=== PATIENT | male | born 1955 | race Caucasian/White ===

== ENCOUNTER 2016-08-18 04:41 | Emergency (ER) | payer OTHER ==
--- NOTE | 2016-08-18 07:08 | ED ORDER SUMMARY ---
..... 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 per protocol) (7:05 JBoardley R.N.) IV FLUIDS: ORDER SHEET NOTES: [Electronically signed by Jhony Correa R.N. (07:08/18/2016)] [Electronically signed by Waldemar Garcia MD (09:29 08/18/2016)] [Electronically locked/signed by Jhony Correa R.N. (07:08/18/2016)]
--- NOTE | 2016-08-18 07:08 | ED CLINICAL REPORT ---
Clinical Report - Physicians/Mid Levels [facility] [address] [place] [address] 08/18/2016 4:43 Patient: ZENA NIXON Time Seen: 04:52. Arrived- By private vehicle. Historian- patient. HISTORY OF PRESENT ILLNESS Location of injuries- upper, mid and lower back, right hand and left shoulder and left hand. Chief Complaint: FALL. The injury occurred last night. Fell while walking and landed on a concrete surface (while stepping off of a curb). Occurred on a street. The patient complains of severe pain. No blow to the head or loss of consciousness. The patient complains of neck pain. REVIEW OF SYSTEMS No numbness, dizziness, weakness, headache or chills. No fever, sweats, calf pain, chest pain or cough. No difficulty breathing, pedal edema, palpitations, abdominal pain or constipation. No diarrhea, nausea, vomiting or urinary problems. All systems otherwise negative, except as recorded above. PAST HISTORY Tetanus immunization status is unknown. Problems: Chronic pain. COPD - Chronic Obstructive Pulmonary Disease. Anxiety Reaction. Hepatitis. Degenative Disk Disease. Additional Surgeries: Clavical "Shaved". Facial reconstruction. Left Arm Muscle Surgery. Medications: Naloxone HCl Injection. Ledipasvir-Sofosbuvir. Ipratropium-Albuterol Inhalation. Methadone HCl Oral. ClonazePAM Oral. Allergies: No Known Drug Allergy. SOCIAL HISTORY Never smoker. History of occasional drug use: marijuana. Is a recovering addict. FAMILY HISTORY Denies family medical history. ADDITIONAL NOTES The nursing notes have been reviewed. PHYSICAL EXAM Vital Signs: 08/18/2016 04:51 BP: 151/101. HR: 104. RR: 16. O2 saturation: 96%. Temp: 98 F. Pain level now: 8/10. Have been reviewed. Appearance: Alert. Head: No swelling of head. Eyes: Pupils equal, round and reactive to light. EOM intact. ENT: No dental injury. Pharynx normal. Neck: No vertebral tenderness. CVS: Heart sounds normal. Respiratory: Breath sounds normal. Abdomen: No visible injury. Soft and nontender. Bowel sounds normal. No organomegaly. No mass. Back: Moderately limited ROM in the back- in the thoracic spine; in the lumbar spine. No vertebral point tenderness. Skin: Skin warm and dry. Normal skin color. Normal skin turgor. Extremities: Normal inspection. Right hand: mild tenderness and multiple small abrasions. Left hand: multiple small abrasions. Pelvis stable. LABS, X-RAYS, AND EKG C-Spine X-rays: (IMPRESSION: 1. Intact cervical spine with mild to moderate degenerative disc and endplate changes.). The X-rays were interpreted by the radiologist and contemporaneously by me. T-Spine X-rays: (IMPRESSION: 1. Intact thoracic spine. 2. Mild degenerative changes.). The X-rays were interpreted by the radiologist and contemporaneously by me. LS-Spine X-rays: (IMPRESSION: 1. Minor L1 superior endplate compression, chronicity uncertain. 2. Moderately severe degenerative disc and endplate change to the lumbar spine.). The X-rays were interpreted by the radiologist and contemporaneously by me. PROGRESS AND PROCEDURES Patient/family counseled. Old medical records ordered. Old records unavailable. Disposition: Discharged. Condition: stable. CLINICAL IMPRESSION Acute and chronic neck pain associated with cervical DJD. Multiple superficial abrasions to the right hand and left hand. Back pain associated with muscle strain; degenerative joint disease; degenerative disc disease. Fall. INSTRUCTIONS Apply ice for 20 minutes four times a day until better. Don't apply ice directly to skin and don't use while asleep. Protect wound and keep wound area clean. You may wash wounds briefly, then dry. Apply neosporin twice daily. No driving or operating machinery. Warnings: COMPLICATIONS: Complications from this condition include: possible infection. Future problems may include infection, scarring and pain. INFECTION: Watch for signs of infection (increasing heat and redness, pus-like drainage, swelling, or increased pain). Return or see your doctor if these signs occur. TETANUS: You were given a tetanus shot during your visit. Make a note for future reference. GENERAL WARNINGS: Return or contact your physician immediately if your condition worsens or changes unexpectedly, if not improving as expected, or if other problems arise. Your Current Medications: CONTINUE TAKING THE FOLLOWING MEDICATIONS: ClonazePAM Oral. Ipratropium-Albuterol Inhalation. Ledipasvir-Sofosbuvir*. Methadone HCl Oral. Naloxone HCl Injection. Follow-up: Follow up with your doctor in three days if not better. Understanding of the discharge instructions verbalized by patient. (Electronically signed by Waldemar Garcia MD 08/18/2016 9:29)
--- NOTE | 2016-08-18 07:08 | ED NURSING NOTES ---
Clinical Report - Nurses [facility] [address] [place] [address] 08/18/2016 4:43 Patient: ZENA NIXON TRIAGE Triage time 04:51. Acuity: LEVEL 4. Chief Complaint: FALL. Alert. No acute distress. CHRIS COMA SCORE: Chris Coma Scale: 15- eyes open spontaneously (4); best verbal response- oriented x 4 (5); best motor response- obeys commands (6). --04:59 Lee De La Torre R.N. 04:51 08/18/16. BP: 151/101 taken while sitting. HR: 104. RR: 16 (regular and unlabored). O2 saturation: 96% on room air. Temp: 98 F (oral). Pain level now: 11/25. --04:59 Lee De La Torre R.N. Weight: 81.6 kg stated. Height/Length: 68 inches. BMI: 27.4. --04:50 Lee De La Torre R.N. Medications ClonazePAM Oral. --04:54 Lee De La Torre R.N. Methadone HCl Oral. --04:54 Lee De La Torre R.N. Ipratropium-Albuterol Inhalation. --04:55 Lee De La Torre R.N. Ledipasvir-Sofosbuvir. --04:55 Lee De La Torre R.N. Naloxone HCl Injection. --04:56 Lee De La Torre R.N. Allergies No Known Drug Allergy. --04:53 Lee De La Torre R.N. History Arrived by private vehicle. Historian: patient. Unaccompanied. Location of injuries: right hand and left hand. This occurred just prior to arrival. ( pt states that he "fell off a curb" and states having increased back pain and "spasms" in his back and left shoulder. Denies LOC.). No loss of consciousness. No alteration in mental status. SOCIAL HX: Never smoker. History of occasional drug use: marijuana. Is a recovering addict. No alcohol use. ABUSE ASSESSMENT: No report of abuse. SELF HARM ASSESSMENT: A self harm assessment was performed. The patient answered "no" to the question "Do you have thoughts of harming or killing yourself?" and "Are you here because you tried to hurt yourself?". NUTRITIONAL RISK ASSESSMENT: The nutritional risk assessment revealed no deficiencies. FUNCTIONAL ASSESSMENT: Functional assessment: no impairments noted. LEARNING NEEDS ASSESSMENT: The learning needs assessment revealed no barriers. FALL RISK ASSESSMENT: Fall risk assessment completed. Risk factors identified include patient history of fall. SKIN INTEGRITY ASSESSMENT: Skin integrity risk assessment completed. No skin integrity risk identified. --04:59 Lee De La Torre R.N. PROBLEMS: COPD - Chronic Obstructive Pulmonary Disease. Anxiety Reaction. Hepatitis. Degenative Disk Disease. --04:57 Lee De La Torre R.N. Chronic pain. --05:07 Lee De La Torre R.N. The following entry was modified by Lee De La Torre R.N., 05:07 Reason - charted in error <<STRICKEN ENTRY-- Substance Abuse. --04:56 Lee De La Torre R.N. --END STRIKE>>. ADDITIONAL SURGERIES: Clavical "Shaved". Facial reconstruction. Left Arm Muscle Surgery. --04:58 Lee De La Torre R.N. Interventions ID band on patient. To room. --04:59 Lee De La Torre R.N. PHYSICAL ASSESSMENT Ambulatory to room. GENERAL / NEURO / PSYCH: Alert. Oriented X 4. Appears in no acute distress. RESPIRATORY: Respirations not labored. ( slight inspiratory wheezing in bilateral lower lobes). CVS: Capillary refill less than 2 seconds. SKIN: Skin is warm and dry. ( superficial scratches to hands bilaterally). --05:01 Lee De La Torre R.N. NURSING PROGRESS NOTES Patient gowned. Reassurance given. Two patient identifiers checked. Call light placed in reach. Side rails up x 1. Bed placed in lowest position. Brakes of bed on. Patient ready for evaluation- chart flagged. Patient waiting for evaluation. --05:02 Lee De La Torre R.N. ( Patient returned from radiology.). --05:54 Lee De La Torre R.N. <<STRICKEN ENTRY-- 06:14 08/18/2016 TDAP IM 0.5 mL given. (Lot#: [id number], Manufacturing Sr Engineer: sanofi pasteur). Given in the left deltoid. Allergies verified and confirmed 5 rights. Vaccine information statement provided to the patient. --06:14 Lee De La Torre R.N. --END STRIKE>> Correction. --06:15 Lee De La Torre R.N. 06:14 08/18/2016 TDAP IM 0.5 mL given. (Lot#: [id number], expiration date: 01/23/2018, Manufacturing Sr Engineer: sanofi pasteur). Given in the left deltoid. Allergies verified and confirmed 5 rights. Vaccine information statement provided to the patient. --06:15 Lee De La Torre R.N. 06:16 08/18/2016 Toradol IM 60 mg (NOW) was refused by patient because pain is gone. Lee De La Torre --06:17 Lee De La Torre R.N. ( Patient states that "the pain is really not that bad. Could I not have the shot?" Patient declines toradol shot, and accepts TDAP shot.). --06:19 Lee De La Torre R.N. <<STRICKEN ENTRY-- ( helped patient to the bedside commode). --06:34 Lee De La Torre R.N. --END STRIKE>> Charted On Wrong Patient --06:37 Lee De La Torre R.N. <<STRICKEN ENTRY-- 06:34 08/18/16. BP: 135/63. HR: 84. RR: 21. O2 saturation: 94% on nasal cannula at 2 liters/minute. Pain level now: 10/25. --06:34 Lee De La Torre R.N. --END STRIKE>> Charted on wrong patient. --06:37 Lee De La Torre R.N. ( patient resting on bed). --06:38 Lee De La Torre R.N. ( Report given to Jhony Lemons RN). --07:01 Lee De La Torre R.N. 07:00 08/18/2016 Zofran ODT (Ondansetron) PO 4 mg given. Allergies verified and confirmed 5 rights. --07:05 Jhony Correa R.N. 07:06 08/18/16. ( Pt c/o nausea on DC, gave pt zofran ODT at 0700, on DC pt states nausea is better.). --07:06 Jhony Correa R.N. DISPOSITION / DISCHARGE 07:08/18/16. Condition at departure: improved. The goals identified in the patient's plan of care were met. No learning barriers present. Discharge instructions provided and reviewed with the patient. Reviewed warnings. Reviewed medication(s). Treatments reviewed. Patient verbalized understanding. Written instructions provided in Greenlandic. The patient was discharged by the physician. He was discharged home. He left the Emergency Department ambulatory and via private vehicle. Patient driving. FALL RISK ASSESSMENT: Fall risk assessment completed. No fall risk identified. --07:06 Jhony Correa R.N. 07:08/18/16. BP: 165/88. HR: 72. RR: 14. O2 saturation: 98% on room air. Temp: 98.2 F (oral). --07:06 Jhony Correa R.N. 07:07 08/18/16. --07:07 Jhony Correa R.N. 07:08/18/16. Pain level now: 04/27. --07:07 Jhony Correa R.N. 07:08/18/16. ( Gave pt abx on DC as well as bandaids for wound care. Pt aware how to care for wounds on DC). --07:07 Jhony Correa R.N. <<STRICKEN ENTRY-- 07:07 08/18/16. Departure time: 07:07. --07:07 Jhony Correa R.N. --END STRIKE>> Correction --07:11 Jhony Correa R.N. 07:10 08/18/16. Departure time: 07:10. --07:10 Jhony Correa R.N. Locked/Released at 08/18/2016 7:11 by Jhony Correa R.N.
--- NOTE | 2016-08-18 07:08 | ED ORDER SUMMARY ---
..... 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 per protocol) (7:05 JBoardley R.N.) IV FLUIDS: ORDER SHEET NOTES: [Electronically signed by Jhony Correa R.N. (07:08/18/2016)] [Electronically signed by Waldemar Garcia MD (09:29 08/18/2016)] [Electronically locked/signed by Jhony Correa R.N. (07:08/18/2016)]
--- NOTE | 2016-08-18 07:42 | DIAGNOSTIC IMAGING REPORT ---
PROCEDURE: XR CERVICAL SPINE 2 OR 3 VIEW INDICATION: NECK PAIN TECHNIQUE: Four views of the cervical spine were obtained. COMPARISON: None. FINDINGS: The cervical vertebral bodies are normal in height without acute fracture. Trace retrolisthesis C2 on three, C3-4, and trace anterolisthesis C4 and C5. Mild posterior endplate spurring and uncovertebral joint hypertrophy. Moderate disc height loss C2-3, C3-4, C5-6, C6-7 and mild disc height loss C4-5. There is no prevertebral soft-tissue swelling or suspicious calcification. The airway is patent. The soft tissues of the neck appear normal. IMPRESSION: 1. Intact cervical spine with mild to moderate degenerative disc and endplate changes.
--- NOTE | 2016-08-18 07:45 | DIAGNOSTIC IMAGING REPORT ---
PROCEDURE: XR THORACIC SPINE 3 VIEWS INDICATION: MID BACK PAIN TECHNIQUE: Three views of the thoracic spine COMPARISON: None. FINDINGS: 12 thoracic vertebral bodies are normal in height without fracture. Minor smooth rightward curvature. No acute AP subluxation. Mild anterior endplate spurring in the upper to mid thoracic spine. Mild decreased disc height loss T6-7. Sclerotic degenerative endplate changes. Paraspinal soft tissue stripe is normal. The visible soft tissues and ribs are normal. IMPRESSION: 1. Intact thoracic spine. 2. Mild degenerative changes.
--- NOTE | 2016-08-18 07:51 | DIAGNOSTIC IMAGING REPORT ---
PROCEDURE: XR LUMBAR SPINE 2 OR 3 VIEWS INDICATION: LOWER BACK PAIN TECHNIQUE: Three views of the lumbar spine COMPARISON: None. FINDINGS: Five lumbar-type vertebral bodies. Minor superior endplate compression of L1. No other vertebral body height loss. Moderate endplate sclerosis and spurring, particularly left lateral at the L1-2 level. Moderately severe multilevel disc height loss throughout the lumbar spine mild S-shaped scoliosis with rightward apex at L1-2 and leftward apex at L4. No acute AP subluxation. The rest of the visible osseous pelvis is normal. Overlying soft tissues are unremarkable. IMPRESSION: 1. Minor L1 superior endplate compression, chronicity uncertain. 2. Moderately severe degenerative disc and endplate change to the lumbar spine.
--- NOTE | 2016-08-18 09:29 | ED MAR SUMMARY ---
..... Medication Administration Record [facility] [address] [place] [address] Patient: ZENA NIXON Visit ID: [id number] 61y, M Weight: 81.6 kg Height/Length: 68 in BMI: 27.4 ALLERGIES: No Known Drug Allergy Given 06:14 08/18/2016 Lee De La Torre R.N. Medication Administered: TDAP [IM], Dose: 0.5 mL IM. Medication Ordered: Tdap IM 0.5 mL (NOW, per protocol). Given 07:00 08/18/2016 Jhony Correa RKiana Medication Administered: ZOFRAN ODT [PO] (ONDANSETRON), Dose: 4 mg PO. Medication Ordered: Zofran ODT PO 4 mg (NOW).
--- NOTE | 2016-08-18 09:29 | ED MAR SUMMARY ---
..... Medication Administration Record [facility] [address] [place] [address] Patient: ZENA NIXON Visit ID: [id number] 61y, M Weight: 81.6 kg Height/Length: 68 in BMI: 27.4 ALLERGIES: No Known Drug Allergy Given 06:14 08/18/2016 Lee De La Torre R.N. Medication Administered: TDAP [IM], Dose: 0.5 mL IM. Medication Ordered: Tdap IM 0.5 mL (NOW, per protocol). Given 07:00 08/18/2016 Jhony Correa RKiana Medication Administered: ZOFRAN ODT [PO] (ONDANSETRON), Dose: 4 mg PO. Medication Ordered: Zofran ODT PO 4 mg (NOW).
--- NOTE | 2016-08-18 09:29 | ED DISCHARGE INSTRUCTIONS ---
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 Multiple superficial abrasions to the right hand and left hand. Back pain associated with muscle strain; degenerative joint disease; degenerative disc disease. Fall. INSTRUCTIONS Apply ice for 20 minutes four times a day until better. Don't apply ice directly to skin and don't use while asleep. Protect wound and keep wound area clean. You may wash wounds briefly, then dry. Apply neosporin twice daily. No driving or operating machinery. Warnings: COMPLICATIONS: Complications from this condition include: possible infection. Future problems may include infection, scarring and pain. INFECTION: Watch for signs of infection (increasing heat and redness, pus-like drainage, swelling, or increased pain). Return or see your doctor if these signs occur. TETANUS: You were given a tetanus shot during your visit. Make a note for future reference. GENERAL WARNINGS: Return or contact your physician immediately if your condition worsens or changes unexpectedly, if not improving as expected, or if other problems arise. Your Current Medications: CONTINUE TAKING THE FOLLOWING MEDICATIONS: ClonazePAM Oral. Ipratropium-Albuterol Inhalation. Ledipasvir-Sofosbuvir*. Methadone HCl Oral. Naloxone HCl Injection. Follow-up: Follow up with your doctor in three days if not better. Understanding of the discharge instructions verbalized by patient. ADDITIONAL INFORMATION Mechanical Fall You have had a fall today. It appears that the cause is mechanical. That means that you slipped, tripped or lost your balance. If your fall had been due to fainting or a seizure, further tests would be required. Home Care: Rest today and resume your normal activities when you are feeling back to normal. If you were injured during the fall, follow the advice from your doctor regarding care of your injury. You may use acetaminophen (Tylenol) or ibuprofen (Motrin, Advil) to control pain, unless another pain medicine was prescribed. [NOTE: If you have chronic liver or kidney disease or ever had a stomach ulcer or GI bleeding, talk with your doctor before using these medicines.] Fall Prevention: Was there anything that caused your fall that can be fixed, removed, or replaced? Make your home safe by keeping walkways clear of objects you may trip over. Use non-slip pads under rugs. Do not walk in poorly lit areas. Do not stand on chairs or wobbly ladders. Use caution when reaching overhead or looking upward. This position can cause a loss of balance. Be sure your shoes fit properly, have non-slip bottoms and are in good condition. Be cautious when going up and down curbs, and walking on uneven sidewalks. If your balance is poor, consider using a cane or walker. Stay as active as you can. Balance, flexibility, strength, and endurance all come from exercise. They all play a role in preventing falls. Follow Up with your doctor or as advised by our staff. Get Prompt Medical Attention if any of the following occur: Repeated mechanical falls, or unexplained falls Dizziness, fainting or seizure Severe headache Chest pain or shortness of breath Palpitations (very rapid or very slow or irregular heartbeat) Blood in vomit, stools (black or red color) Weakness of an arm or leg or one side of the face Difficulty with speech or vision Abrasions Abrasions are skin scrapes. Their treatment depends on how large and deep the abrasion is. Home Care: If you were given a bandage, change it once a day. If your bandage sticks to the wound, soak it in warm water until it loosens. Wash the area with soap and water to remove all the cream/ointment. You may do this in a sink, under a tub faucet or shower. Rinse off the soap and pat dry with a clean towel. Reapply cream/ointment according to your doctor's instructions. This will prevent infection and help prevent the bandage from sticking. Cover the wound with a fresh non-stick bandage (Telfa). Repeat steps 1 to 4 daily, or as directed by your doctor. If the bandage becomes wet or dirty, change it as soon as possible. You may use acetaminophen (Tylenol) or ibuprofen (Motrin, Advil) to control pain, unless another pain medicine was prescribed. [ NOTE : If you have chronic liver or kidney disease or ever had a stomach ulcer or GI bleeding, talk with your doctor before using these medicines.] Do not use ibuprofen in children under six months of age. Follow Up with your physician or this facility as directed by our staff. Most skin wounds heal within ten days. However, an infection may occur despite proper treatment. Therefore, look for the early signs of infection listed below. Get Prompt Medical Attention if any of the following occur: Increasing pain in the wound Increasing redness or swelling Pus coming from the wound Fever of 100.4F (38C) or higher, or as directed by your healthcare provider Neck Sprain Or Strain A sudden force that causes turning or bending of the neck (such as in a car accident) can stretch or tear muscles (strain) and ligaments (sprain) and cause neck pain. Sometimes neck pain occurs after a simple awkward movement. In either case, muscle spasm is commonly present and contributes to the pain. Unless you had a forceful physical injury (for example, a car accident or fall), X-rays are usually not ordered for the initial evaluation of neck pain. If pain continues and dose not respond to medical treatment, X-rays and other tests may be performed at a later time. Home care The following guidelines will help you care for your injury at home: You may feel more soreness and spasm the first few days after the injury. Reduce your activity level until symptoms begin to improve. When lying down, use a comfortable pillow that supports the head and keeps the spine in a neutral position. The position of the head should not be tilted forward or backward. Use ice packs (ice in a plastic bag, wrapped in a towel) to treat acute pain. Apply for 20 minutes every 24 hours during the first two days. Then, begin local heat (hot shower, hot bath or heating pad) andmassageto reduce muscle spasm. Some patients feel best alternating hot and cold treatments, or just staying with one method only. Do what feels the best to you and gives the most relief. You may use acetaminophen or ibuprofen to control pain, unless another pain medicine was prescribed.If you have chronic liver or kidney disease or ever had a stomach ulcer or GI bleeding, talk with your doctor before using these medicines. Follow-up care Follow up with your physician or this facility if your symptoms do not show signs of improvement. Physical therapy may be needed. If you had X-rays today, they didnt show any broken bones, breaks, or fractures. Sometimes fractures dont show up on the first X-ray. Bruises and sprains can sometimes hurt as much as a fracture. These injuries can take time to heal completely. If your symptoms dont improve or they get worse, talk with your doctor. You may need a repeat X-ray. When to seek medical care Get prompt medical attention if any of the following occur: Pain becomes worse or spreads into your arms Weakness or numbness in one or both arms Back Pain [Acute Or Chronic] Back pain is usually caused by an injury to the muscles or ligaments of the spine. Sometimes the disks that separate each bone in the spine may bulge and cause pain by pressing on a nearby nerve. Back pain may also appear after a sudden twisting/bending force (such as in a car accident), after a simple awkward movement, or lifting something heavy with poor body positioning. In either case, muscle spasm is often present and adds to the pain. Acute back pain usually gets better in one to two weeks. Back pain related to disk disease, arthritis in the spinal joints or spinal stenosis (narrowing of the spinal canal) can become chronic and last for months or years. Unless you had a physical injury (for example, a car accident or fall) X-rays are usually not ordered for the initial evaluation of back pain. If pain continues and does not respond to medical treatment, x-rays and other tests may be performed at a later time. Home Care: You may need to stay in bed the first few days. But, as soon as possible, begin sitting or walking to avoid problems with prolonged bed rest (muscle weakness, worsening back stiffness and pain, blood clots in the legs). When in bed, try to find a position of comfort. A firm mattress is best. Try lying flat on your back with pillows under your knees. You can also try lying on your side with your knees bent up towards your chest and a pillow between your knees. Avoid prolonged sitting. This puts more stress on the lower back than standing or walking. During the first two days after injury, apply an ICE PACK to the painful area for 20 minutes every 2-4 hours. This will reduce swelling and pain. HEAT (hot shower, hot bath or heating pad) works well for muscle spasm. You can start with ice, then switch to heat after two days. Some patients feel best alternating ice and heat treatments. Use the one method that feels the best to you. You may use acetaminophen (Tylenol) or ibuprofen (Motrin, Advil) to control pain, unless another pain medicine was prescribed. [NOTE: If you have chronic liver or kidney disease or ever had a stomach ulcer or GI bleeding, talk with your doctor before using these medicines.] Be aware of safe lifting methods and do not lift anything over 15 pounds until all the pain is gone. Follow Up with your doctor or this facility if your symptoms do not start to improve after one week. Physical therapy may be needed. [NOTE: If X-rays were taken, they will be reviewed by a radiologist. You will be notified of any new findings that may affect your care.] Get Prompt Medical Attention if any of the following occur: Pain becomes worse or spreads to your legs Weakness or numbness in one or both legs Loss of bowel or bladder control Numbness in the groin or genital area Degenerative Disk Disease Spinal disks are gel-filled cushions between the bones of the spine (vertebrae). The disks act like shock absorbers. Over time, the disks may break down. This disorder is called degenerative disk disease (DDD). DDD can affect the neck or back. It is one of the most common causes of low back pain. It is the leading cause of disability in people under age 45 in the [place]. The pain usually remains localized to the lower back or neck. Muscle spasm is often present and adds to the pain. Disk degeneration is a natural part of aging, although it does not cause pain in most persons. It may also occur as a result of repeated minor injuries due to daily activities, sports, or accidents. It may lead to osteoarthritis of the spine. Back pain related to disk disease may come and go or become chronic and last for months or years. If the disk bulges or ruptures (also called slipped disk or herniated disk), it can put pressure on a nearby spinal nerve and cause neck or back pain that spreads down one arm or leg. X-rays or MRI (magnetic resonance imaging) scan may aid in the diagnosis. For acute pain, treatment consists of anti-inflammatory drugs, muscle relaxants, rest, ice, or heat. Narcotic pain medicines may be needed for short-term treatment of sudden worsening of pain. Due to their addictive potential, narcotics are not advised for long-term pain management. Other types of medicines are preferred. Surgery is usually not used to treat this condition unless there is a complication (such as nerve root compression). Home Care: FOR NECK PAIN: Use a comfortable pillow that supports the head and keeps the spine in a neutral position. The head should not be tilted forward or backward. FOR BACK PAIN: Avoid prolonged sitting. This puts more stress on the lower back than standing or walking. Establishing a regular exercise program to strengthen the supporting muscles of the spine will make it easier to live with DDD. During the first2 days after a flare-up of your pain, apply anice pack to the painful area for 20 minutes every 2-4 hours. This will reduce swelling and pain.Heat (hot shower, hot bath, or heating pad) works well for muscle spasm. You can start with ice, then switch to heat after2 days. Some patients feel best alternating ice and heat treatments. Use the method that feelsbest to you. You may use acetaminophen (Tylenol) or ibuprofen (Motrin, Advil) to control pain, unless another pain medicine was prescribed. [NOTE: If you have chronic liver or kidney disease or ever had a stomach ulcer or GI bleeding, talk with your doctor before using these medicines.] Follow Up with your physician, or as directed by our staff. [NOTE: If x-rays, a CT scan or an MRI scan were taken, they will be reviewed by a radiologist. You will be notified of any new findings that may affect your care.] Return Promptly or contact your doctor if any of the following occur: Increasing back pain New weakness, numbness, or pain in one or both arms or legs Foot drop (foot drags when you walk) Loss of bowel or bladder control Numbness or tingling in the buttock or groin area Unexplained fever over 100.4F (38.0C) Diphtheria Toxoid Adsorbed, Pertussis Vaccine, Acellular (Adsorbed), Tetanus Toxoid, Adsorbed Suspension for injection What is this medicine? DIPHTHERIA and TETANUS TOXOIDS; PERTUSSIS VACCINE (dif THEER ee uh and TET n us TOK soids; per CORTES montanez SEEN) is used to prevent diphtheria, tetanus, and pertussis infections. How should I use this medicine? This vaccine is for injection into a muscle. It is given by a health vocational childcare teacher. A copy of Vaccine Information Statements will be given before each vaccination. Read this sheet carefully each time. The sheet may change frequently. Talk to your animal scientist regarding the use of this vaccine in children. While the DTP vaccine may be given to children ages 6 weeks to 7 years and the Tdap vaccine may be given to children at least 10 years old, precautions do apply. What side effects may I notice from receiving this medicine? Side effects that you should report to your doctor or health vocational childcare teacher as soon as possible: allergic reactions like skin rash, itching or hives, swelling of the face, lips, or tongue breathing problems fever of 103 degrees F or more flu-like symptoms inconsolable crying infection pain, tingling, numbness in the hands or feet seizures swelling of arm or leg that was injected unusually weak or tired Side effects that usually do not require immediate medical attention (report these side effects to your doctor or health vocational childcare teacher if they continue or are bothersome): fussy, irritable loss of appetite fever of 102 degrees F or less pain, tenderness, redness, swelling, or a 'knot' at site where injected vomiting What may interact with this medicine? immune globulin medicines that suppress your immune function like adalimumab, anakinra, infliximab medicines to treat cancer medicines that treat or prevent blood clots like warfarin, enoxaparin, and dalteparin steroid medicines like prednisone or cortisone What if I miss a dose? It is important not to miss your dose. Call your doctor or health vocational childcare teacher if you are unable to keep an appointment. Where should I keep my medicine? This drug is given in a hospital or clinic and will not be stored at home. What should I tell my health care provider before I take this medicine? They need to know if you have any of these conditions: blood disorders like hemophilia fever or infection immune system problems neurologic disease seizures an unusual or allergic reaction to vaccines, thimerosal, latex, other medicines, foods, dyes, or preservatives or trying to get breast-feeding What should I watch for while using this medicine? See your health care provider for all shots of this vaccine as directed. To have protection from infection, you must have 3 shots of this vaccine plus boosters as needed. Tell your doctor right away if you have any serious or unusual side effects after getting this vaccine. You have been given the following additional information: Fall, Mechanical Abrasion Neck Sprain/Strain Back Pain (Acute Or Chronic) Degenerative Disk Disease Diphtheria Toxoid Adsorbed, Pertussis Vaccine, Acellular (Adsorbed), Tetanus Toxoid, Adsorbed Suspension for injection No driving or operating machinery. (Electronically signed by Waldemar Garcia MD 08/18/2016 9:29)
--- NOTE | 2016-08-18 09:29 | ED MED RECONCILIATION SUMMARY ---
Patient: ZENA NIXON Medication Reconciliation Report [facility] VisitID: [id number] [address] [place] [address] 61y, M Registration Date/Time: 08/18/2016 Weight: 81.6 kg Height/Length: 68 in. BMI: 27.4 ALLERGIES: No Known Drug Allergy The patient's Home Medications are listed below: CONTINUE TAKING THE FOLLOWING MEDICATIONS: ClonazePAM Oral Ipratropium-Albuterol Inhalation Ledipasvir-Sofosbuvir Methadone HCl Oral Naloxone HCl Injection The source(s) of the original Home Medication information: Not obtained. The following Medications were given to the patient in the Emergency Department: TDAP [IM] IM 0.5 mL, administered: 08/18/2016 6:14:00 AM Zofran ODT [PO] PO 4 mg, administered: 08/18/2016 7:00:00 AM The following Medications were prescribed to the patient: None.
--- NOTE | 2016-08-18 09:29 | ED MED RECONCILIATION SUMMARY ---
Patient: ZENA NIXON Medication Reconciliation Report [facility] VisitID: [id number] [address] [place] [address] 61y, M Registration Date/Time: 08/18/2016 Weight: 81.6 kg Height/Length: 68 in. BMI: 27.4 ALLERGIES: No Known Drug Allergy The patient's Home Medications are listed below: CONTINUE TAKING THE FOLLOWING MEDICATIONS: ClonazePAM Oral Ipratropium-Albuterol Inhalation Ledipasvir-Sofosbuvir Methadone HCl Oral Naloxone HCl Injection The source(s) of the original Home Medication information: Not obtained. The following Medications were given to the patient in the Emergency Department: TDAP [IM] IM 0.5 mL, administered: 08/18/2016 6:14:00 AM Zofran ODT [PO] PO 4 mg, administered: 08/18/2016 7:00:00 AM The following Medications were prescribed to the patient: None.
== END 2016-08-18 07:10 | disposition home or self-care (01) ==
LOC: ED SRH 04:41
DX: S39.012A Strain of muscle, fascia and tendon of lower back, initial encounter (principal); S60.511A Abrasion of right hand, initial encounter; S60.512A Abrasion of left hand, initial encounter; M47.892 Other spondylosis, cervical region; M51.36 Other intervertebral disc degeneration, lumbar region; M47.896 Other spondylosis, lumbar region; W18.39XA Other fall on same level, initial encounter; Y93.01 Activity, walking, marching and hiking; Y92.410 Unspecified street and highway as the place of occurrence of the external cause; Y99.9 Unspecified external cause status